=== PATIENT | male | born 1970 ===

== ENCOUNTER 2021-10-23 11:43 | Emergency (ER) | payer SELFPAY ==
[2021-10-23] MEDS ORDERED: DIPH,PERTUS(ACELL)TETVAC-LF 0.5 ML VIAL IM ONE (11:55)
[2021-10-23 11:59] LABS: Glucose,Whole Blood 172 mg/dL (70-110)
[2021-10-23] MEDS ORDERED: TRANEXAMIC ACID IN NACL,ISO-OS 1,000 MG in SALINE 1 100ML.BAG IV STA (12:00)
[2021-10-23 12:07] LABS: Basophils # (A) 0.1 k/uL (0-0.2); Basophils % (A) 1 %; Eosinophils # (A) 0.1 k/uL (0-0.7); Eosinophils % (A) 1 %; HCT 47.4 % (39.0-53.0); HGB 15.9 gm/dL (13.0-17.5); Lymphocytes # (A) 4.2 k/uL (1.0-4.8); Lymphocytes % (A) 24 %; MCH 31.6 pg (25.0-35.0); MCHC 33.6 g/dL (31.0-37.0); Mean Platelet Volume 7.8; Monocytes # (A) 0.7 k/uL (0-1.0); Monocytes % (A) 4 %; Neutrophils # (A) 12.4 k/uL (1.3-7.7); Neutrophils % (A) 70 %; Platelet Count 261 k/uL (150-450); RBC 5.04 m/uL (4.30-5.90); RDW 12.9 % (11.5-15.5); WBC 17.8 k/uL (3.8-10.6)
[2021-10-23 12:12] LABS: ALT 68 U/L (4-49); AST 95 U/L (17-59); African American GFR (CKD) >90 (>60 ml/min/1.73 sqM); Albumin 4.3 g/dL (3.5-5.0); Alcohol <10 mg/dL; Alkaline Phosphatase 70 U/L (38-126); Anion Gap 14 mmol/L; Blood Urea Nitrogen 13 mg/dL (9-20); Calcium 8.3 mg/dL (8.4-10.2); Carbon Dioxide 24 mmol/L (22-30); Chloride 107 mmol/L (98-107); Glucose 170 mg/dL (74-99); Non-African American GFR(CKD) >90 (>60 ml/min/1.73 sqM); Potassium 3.7 mmol/L (3.5-5.1); Sodium 145 mmol/L (137-145); Total Bilirubin 1.8 mg/dL (0.2-1.3); Total Protein 6.7 g/dL (6.3-8.2)
[2021-10-23 12:17] LABS: Partial Thromboplastin Time 24.3 sec (22.0-30.0); Prothrombin Time 10.7 sec (9.0-12.0)
[2021-10-23 12:24] VITALS: BP 156/120; PULSE 122; RESP 18; TEMP 97.6
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
--- NOTE | 2021-10-23 12:29 | XR ---
EXAMINATION TYPE: XR chest 1V portable DATE OF EXAM: 10/23/2021 COMPARISON: NONE HISTORY: Pain TECHNIQUE: Single frontal view of the chest is obtained. FINDINGS: ET tube 5 cm above the sumaya and NG tube noted extending about the quadrant. There is a c oarsened interstitium with left lower lobe infiltrate. IMPRESSION: 1. Diffuse interstitial pattern with left lower lobe consolidation and small effusion. In the setting of trauma would recommend CT scan of the chest.
[2021-10-23] MEDS ORDERED: SODIUM CHLORIDE 3%(HYPERTONIC) 500 ML IV SCH (12:30)
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
[2021-10-23] MEDS ORDERED: fentaNYL (PF) 50 MCG/ML 2 ML AMP IVP STA (12:43)
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
[2021-10-23] MEDS ORDERED: ETOMIDATE 2 MG/ML 10 ML VIAL IVP STA (12:55)
[2021-10-23] MEDS ORDERED: ROCURONIUM 10 MG/ML (5 ML VIAL) IV STA (12:56)
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
--- NOTE | 2021-10-23 13:11 | XR ---
EXAMINATION TYPE: XR ankle complete bilateral DATE OF EXAM: 10/23/2021 COMPARISON: NONE HISTORY: Pain FINDINGS: Three views of the ankle demonstrate the ankle mortise to be intact and symmetric. The joint spaces are preserved. The osseous structures are intact. Sclerotic density likely representing bone island within the calcaneus. IMPRESSION: 1. No definite acute fracture or dislocation, if symptoms persist follow-up study in 7 to 10 days wou ld be suggested.
[2021-10-23 13:12] LABS: Bilirubin,Urine Negative (Negative); Blood,Urine Large (Negative); Glucose,Urine (UA) Trace (Negative); Ketones,Urine Trace (Negative); Leukocyte Esterase,Urine Negative (Negative); Nitrite,Urine Negative (Negative); Protein,Urine 2+ (Negative); RBC,Urine >182 /hpf (0-5); Specific Gravity,Urine 1.041 (1.001-1.035); Squamous Epithelial Cell,Urine 1 /hpf (0-4); Urobilinogen,Urine <2.0 mg/dL (<2.0); WBC,Urine 14 /hpf (0-5)
--- NOTE | 2021-10-23 13:14 | XR ---
EXAMINATION TYPE: XR tibia fibula bilateral DATE OF EXAM: 10/23/2021 COMPARISON: NONE HISTORY: Pain TECHNIQUE: Two views are submitted. FINDINGS: Linear lucency distal margin of the fibula.. Sclerotic density involving the left calcaneus appears to represent a bone island. There is a soft tissue ossification or calcification adjacent to the medi al left tibia likely on a chronic basis no definite acute fracture. Questionable deformity of the upp er margin of the patella is partially included in the [id number]. IMPRESSION: 1. Question deformity of the upper margin of right patella only partially included in view. Correlate with point tenderness. 2. Linear lucency along the distal fibula could represent a hairline nondisplaced fracture
[2021-10-23 13:17] LABS: Amphetamine Screen,Urine Not Detected (NotDetected); Benzodiazepines Screen,Urine Not Detected (NotDetected); Cocaine Screen,Urine Not Detected (NotDetected); Opiate Screen,Urine Not Detected (NotDetected); Phencyclidine Screen,Urine Not Detected (NotDetected); Tricyclic Antidepressant,Urine Not Detected (NotDetected); Urn Cannabinoid Scrn Detected (NotDetected)
[2021-10-23 13:18] LABS: Barbiturate Screen,Urine Not Detected (NotDetected); Methadone Screen, Urine Not Detected (NotDetected); Oxycodone Screen, Urine Not Detected (NotDetected)
[2021-10-23 13:37] LABS: Appearance,Urine Turbid (Clear); Color,Urine Light Red
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
== END 2021-10-23 13:17 | disposition short-term general hospital (02) ==
LOC: EC 11:43
DX: I60.9 Nontraumatic subarachnoid hemorrhage, unspecified (principal); S02.109A Fracture of base of skull, unspecified side, initial encounter for closed fracture; S22.39XA Fracture of one rib, unspecified side, initial encounter for closed fracture; V89.2XXA Person injured in unspecified motor-vehicle accident, traffic, initial encounter
CPT/HCPCS: 36415; 94002; 93005; 86900; 86901; 80053; 83605; 84484; 85025; 85610; 85730; 86850; 81001; 80306; 80320; 87086; 73610; 73590; 72170; 71045; 72129; 72125; 72132; 70486; 70450; 71260; 74177; 90715; 29505; 90471; 96365; 96375; 96367; 32551; 99291; J0690; J3010; J2704; Q9967